=== PATIENT | female | born 2000 | race Hispanic/Latino ===

== ENCOUNTER 2020-01-09 02:08 | Inpatient (IN) | payer MEDICAID ==
[~2020-01-09] VITALS: Ht 167.6 cm; Wt 70.8 kg
[~2020-01-09 02:08] MED LIST: PNV71COM3 PO
[2020-01-09] MEDS ORDERED: LACTATED RINGERS 1000ML 1,000 ML IV PRN ×2 (02:27→02:43)
[2020-01-09] MEDS ORDERED: LACTATED RINGERS 1000ML 1,000 ML IV SCH (02:30)
[2020-01-09] MEDS ORDERED: OXYTOCIN-LR 20 UNITS/1000 ML 1,000 ML IV SCH (02:30)
[2020-01-09] MEDS ORDERED: EPHEDRINE SULFATE 50 MG/ML AMPULE IVP PRN (02:45)
[2020-01-09] MEDS ORDERED: LACTATED RINGERS 500 ML 500 ML IV PRN (02:45)
[2020-01-09] MEDS ORDERED: ROPIVACAINE 0.2% 100ML VIAL 100 ML EP SCH (02:45)
[2020-01-09] MEDS ORDERED: NALOXONE HCL 0.4 MG/1 ML ML IV PRN (02:45)
[2020-01-09 02:49] LABS: HEMATOCRIT 31.1 % (36-48); MEAN CORPUSCULAR HEMOGLOBIN 27.1 pg (27.0-33.0); MEAN CORPUSCULAR HGB CONC 31.5 g/dL (32.0-36.0); MEAN CORPUSCULAR VOLUME 86.1 fL (80-100); RED BLOOD CELL COUNT(AUTO) 3.61 MIL/uL (4.00-5.50); RED CELL DISTRIBUTION WIDTH 13.4 % (11.0-15.5)
[2020-01-09 02:50] LABS: APPEARANCE,URINE Clear (CLEAR); BILIRUBIN,URINE Negative (NEGATIVE); COLOR,URINE Yellow (YELLOW); GLUCOSE, URINE (UA) Negative (NEGATIVE); KETONES,URINE Negative (NEGATIVE); LEUKOCYTE ESTERASE ,URINE Negative (NEGATIVE); NITRATE,URINE Negative (NEGATIVE); OCCULT BLOOD,URINE Small (NEGATIVE); PH,URINE 7.5 (5.0-8.0); PROTEIN,URINE Negative (NEGATIVE)
[2020-01-09 02:58] LABS: AMPHET/METH SCREEN,URINE NEGATIVE (NEGATIVE); BARBITURATE SCREEN, URINE NEGATIVE (NEGATIVE); BENZODIAZEPINES SCREEN,URINE NEGATIVE (NEGATIVE); CANNABINOID SCREEN,URINE NEGATIVE (NEGATIVE); COCAINE SCREEN,URINE NEGATIVE (NEGATIVE); OPIATE SCREEN,URINE NEGATIVE (NEGATIVE); PHENCYCLIDINE SCREEN,URINE NEGATIVE (NEGATIVE)
[2020-01-09 02:59] LABS: BACTERIA,URINE None Seen /HPF (None Seen); RBC,URINE None Seen /HPF (0-1); WBC,URINE None Seen /HPF (0-1)
[2020-01-09] MEDS ORDERED: FENTANYL CITRATE PF 50 MCG/1 ML 2ML VIAL ONE (03:16)
[2020-01-09] MEDS ORDERED: LIDOCAINE HCL 1% 20 ML VIAL ONE (04:51)
[2020-01-09] MEDS ORDERED: CEFAZOLIN SODIUM 1 GM VIAL ONE (05:42)
[2020-01-09] MEDS ORDERED: BENZOCAINE/LANOLIN/ALOE VERA 60 ML AEROSOL TP PRN (06:15)
[2020-01-09] MEDS ORDERED: WITCH HAZEL 1 PAD TP PRN (06:15)
[2020-01-09] MEDS ORDERED: LANOLIN 30GM OINTMENT TP PRN (06:15)
[2020-01-09] MEDS ORDERED: ACETAMINOPHEN 325 MG TAB PO PRN (06:15)
[2020-01-09] MEDS ORDERED: ACETAMINOPHEN-CODEINE 300/30MG TAB PO PRN (06:15)
[2020-01-09 08:15] VITALS: BP 126/56
[2020-01-09] MEDS: DOCUSATE SODIUM 100 MG CAP PO SCH ×2 (08:28→21:37)
[2020-01-09] MEDS: IBUPROFEN 600 MG TABLET PO PRN (08:30)
[2020-01-09] MEDS ORDERED: PNV71COM3 PO (11:30)
[2020-01-09 11:38] VITALS: BP 119/74
[2020-01-09 16:39] VITALS: BP 120/72
[2020-01-09 19:43] VITALS: BP 108/53
[2020-01-09 23:14] VITALS: BP 102/64
[2020-01-10 03:51] VITALS: BP 117/73
[2020-01-10 06:56] LABS: HEMATOCRIT 22.3 % (36-48); MEAN CORPUSCULAR HEMOGLOBIN 26.6 pg (27.0-33.0); MEAN CORPUSCULAR HGB CONC 30.5 g/dL (32.0-36.0); MEAN CORPUSCULAR VOLUME 87.1 fL (80-100); PLATELET COUNT (AUTO) 92 K/uL (130-400); RED BLOOD CELL COUNT(AUTO) 2.56 MIL/uL (4.00-5.50); RED CELL DISTRIBUTION WIDTH 13.7 % (11.0-15.5); WHITE BLOOD COUNT (AUTO) 10.6 K/uL (4.8-10.8)
[2020-01-10 07:14] VITALS: BP 113/69
[2020-01-10] MEDS: IBUPROFEN 600 MG TABLET PO PRN (08:47)
[2020-01-10] MEDS: DOCUSATE SODIUM 100 MG CAP PO SCH (08:47)
[2020-01-10 09:10] LABS: HEPATITIS Bs ANTIGEN SCREEN P Negative (Negative)
--- NOTE | 2020-01-10 09:15 | NUR ---
verbal and written discharge instructions given, informed of the follow up appointment, no prescription given. all questions answered. informed to call the doctor for future concerns, pt voiced understanding to all things discussed. Addendum: 01/10/20 at 0937 by RAMON MARTINEZ RN Amended: Links added.
[2020-01-10 11:10] VITALS: BP 111/73
--- NOTE | 2020-01-10 11:15 | NUR ---
pt is dismissed in stable condition, brought to private car via wheelchair by parrish Velasquez pcp Addendum: 01/10/20 at 1116 by RAMON MARTINEZ RN Amended: Links added.
== END 2020-01-10 11:20 | disposition home or self-care (01) | DRG 560 ==
LOC: EDH 02:08 → LDH 02:09 → OBSVTOIN 02:09 → WSH 07:47
PROVIDERS: ADMIT Obstetrics & Gynecology; ATTEND Obstetrics & Gynecology
PROC: 10E0XZZ Delivery of Products of Conception, External Approach (ICD-10-PCS; principal; 2020-01-09)
PROC: 0KQM0ZZ Repair Perineum Muscle, Open Approach (ICD-10-PCS; 2020-01-09)
PROC: 3E0R3BZ Introduction of Anesthetic Agent into Spinal Canal, Percutaneous Approach (ICD-10-PCS; 2020-01-09)
PROC: 00HU33Z Insertion of Infusion Device into Spinal Canal, Percutaneous Approach (ICD-10-PCS; 2020-01-09)
PROC: 0UQMXZZ Repair Vulva, External Approach (ICD-10-PCS; 2020-01-09)
DX: O69.81X0 Labor and delivery complicated by cord around neck, without compression, not applicable or unspecified (principal); Z37.0 Single live birth; O70.1 Second degree perineal laceration during delivery; O71.82 Other specified trauma to perineum and vulva; Z3A.38 38 weeks gestation of pregnancy
CPT/HCPCS: 36415; 80305; 81001; 85027; 86592; 86850; 86900; 86901; 87340; A4314; G0378; J0690; J2590; J2795; J3010; J7120